=== PATIENT | male | born 1970 | race Caucasian/White ===

== ENCOUNTER 2016-09-24 14:52 | Emergency (ER) | payer OTHER ==
[2016-09-24] MEDS ORDERED: PREDNISONE 20 MG TABLET ONE (16:28)
[2016-09-24] MEDS ORDERED: KETOROLAC TROMETHAMINE 60 MG/2 ML VIAL ONE (16:28)
[2016-09-24] MEDS ORDERED: CYCLOBENZAPRINE HCL 10 MG TABLET ONE (16:28)
--- NOTE | 2016-09-24 16:47 | RAD ---
AP PELVIS HISTORY: Low back pain.. Frontal view of the pelvis. PELVIC RING: Grossly intact. HIP ALIGNMENT: Grossly unremarkable. HIP JOINT SPACES: Early superior joint space narrowing bilaterally. No destructive lesion.. FRACTURE: No displaced fracture identified. IMPRESSION: No malalignment or displaced acute fracture noted. Findings of early bilateral hip osteoarthritis.
--- NOTE | 2016-09-24 16:48 | RAD ---
LUMBAR SPINE 3 VIEWS HISTORY: Low back pain.. Frontal, lateral, and frontal cone down views of lumbar spine acquired. COMPARISON: None. ALIGNMENT: Grossly unremarkable. DISC SPACES: Severe narrowing at L5-S1, moderate narrowing at L4-5. Multilevel osteophyte formation most notable at the L3-4 level. COMPRESSION DEFORMITY: None. FACET JOINTS: Moderate degenerative change at the L3-4 through L5-S1 levels. Note is made of short pedicles which may predispose to canal stenosis. DISPLACED FRACTURE FRAGMENT: None identified. IMPRESSION: 1. No compression deformity or displaced fracture fragment. 2. Moderately severe changes of lumbar spondylosis with prominent disc space narrowing at L5-S1 and multilevel moderately severe facet degeneration at L3-4 through L5-S1 levels. 3. Short pedicles.
== END 2016-09-24 17:12 | disposition home or self-care (01) ==
LOC: ED 14:52
DX: M54.42 Lumbago with sciatica, left side (principal)